=== PATIENT | male | born 1975 | race Caucasian/White ===

== ENCOUNTER 2016-05-06 23:18 | Observation (INO) | payer BC ==
[~2016-05-06] VITALS: Ht 175.3 cm; Wt 93.7 kg
--- NOTE | ~2016-05-06 | CON ---
PATIENT'S NAME: DONTE ALVARADO [facility] AGE: 41 Y [address] ROOM: [address] [address] LOCATION: GPCU ADMIT DATE: 05/06/2016 Consultation DISCHARGE DATE: 05/08/2016 FAMILY PHYSICIAN: Gabe Johns MD ATTENDING PHYSICIAN: Sherri Diaz REFERRING PHYSICIAN: Glenda Corado MD HISTORY OF PRESENT ILLNESS: The patient was admitted under Dr. Diaz. He was distribution dispatcher overnight. The next morning I took over. He has seen Dr. Lopez only once as an outpatient or something along those lines. It appears as if he developed chest pain that lasted almost 7 hours when they were driving and under a lot of stress because of the snow that was blanketing the whole Road. He ended up in [facility] where troponin was found to be elevated and he was transferred here overnight. He continues to have intermittently some sharp jabbing chest pain in the left pericardial area without much radiation or associated features. His EKG and enzymes here also are elevated and so he is being monitored for now. The patient was hospitalized in March around [place] time and had what appeared to be a non ST-segment elevation LA and the patient underwent cardiac catheterization, and no cause was identified as his coronaries were relatively clear. At that time, his EF was normal and he had actually a syncopal episode and Neurology consult was requested, but the patient wanted to go home and syncope was not followed up for very long. Since he has been discharged home, he has been feeling well except he started to have the symptoms yesterday. He has a history of hypertension and ongoing tobaccoism. He denies diabetes. His cholesterol is unknown and there is no family history of premature coronary artery disease. There is no prior history of rheumatic fever or heart murmur, congestive heart failure, dilated or enlarged heart or any diagnosed arrhythmias. MEDICATIONS: Aspirin 81 mg a day. Dyazide 1 capsule a day, atorvastatin 40 mg a day. ALLERGIES: TRAMADOL AND DIPHENHYDRAMINE. PAST MEDICAL HISTORY: 1. Hepatitis C carrier. 2. History of headaches with hypertension. 3. History of TIA 6 years earlier, no cause identified. PATIENT'S NAME: DONTE ALVARADO [facility] AGE: 41 Y [address] ROOM: [address] [place], [place] [address] LOCATION: GPCU ADMIT DATE: 05/06/2016 Consultation DISCHARGE DATE: 05/08/2016 FAMILY PHYSICIAN: Gabe Johns MD ATTENDING PHYSICIAN: Sherri Diaz SOCIAL HISTORY: The patient is . He denies abusing alcohol even though he seemed to have binge drinking off and on. 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 His appetite and weight and sleep were fair. FAMILY HISTORY: No premature coronary artery disease. REVIEW OF SYSTEMS: 1. History of TIA and headaches as mentioned earlier. 2. Sinus problems. 3. Blurring of vision. 4. Some coughing and wheezing. 5. Cholecystectomy. 6. History of kidney stones. PHYSICAL EXAMINATION: VITAL SIGNS: His blood pressure is 129/80, heart rate is 78, respirations is 20, afebrile. Oxygen saturation is in the low 90s. HEENT: Normal. NECK: Supple with JVD, thyromegaly, lymphadenopathy or carotid bruit. HEART: PMI is not well located. First and second heart sounds are regular. There are no added sounds or murmurs. CHEST: Clear to auscultation. ABDOMEN: Soft, nontender. Bowel sounds are normally present. EXTREMITIES: Reveal no edema. CENTRAL NERVOUS SYSTEM: Intact. There is no chest wall tenderness. ASSESSMENT: 1. Atypical chest pains. 2. Elevated troponins with normal EKG and echocardiogram. 3. Recent catheterization was negative for coronary artery disease. RECOMMENDATION: Rule him out and decide whether this is related to myocarditis or some other form of abnormality of the troponins. Again, appreciate this opportunity to participate in the care of Mr. Alvarado. GLENDA CORADO MD PATIENT'S NAME: DONTE ALVARADO [facility] AGE: 41 Y [address] ROOM: [address] [place], [place] [address] LOCATION: GPCU ADMIT DATE: 05/06/2016 Consultation DISCHARGE DATE: 05/08/2016 FAMILY PHYSICIAN: Gabe Johns MD ATTENDING PHYSICIAN: Sherri Diaz/modl /[id number] d: 05/08/162015 t: 05/11/16 1533, CONSULTATION REPORT
--- NOTE | ~2016-05-06 | CON ---
PATIENT'S NAME: DONTE ALVARADO [facility] AGE: 41 Y [address] ROOM: [address] [address] LOCATION: GPCU ADMIT DATE: 05/06/2016 Consultation DISCHARGE DATE: FAMILY PHYSICIAN: Gabe Johns MD ATTENDING PHYSICIAN: Sherri Diaz DATE OF CONSULTATION: 05/07/2016 REFERRING PHYSICIAN: Hyun Mcgregor MD REASON FOR CONSULTATION: Noncardiac chest pain. REFERRING PROVIDER: Dr. Mcgregor. HISTORY OF PRESENT ILLNESS: This is a pleasant 41-year-old male who was recently admitted in March 2016, with non-STEMI. The patient did undergo heart catheterization at that time that was unremarkable. The patient states that yesterday, he began having "chest pain with palpitations," beginning around 11 a.m. He did state, at this time, he was driving and was noted to have increased stress at that time. The patient stated that the intermittent chest pain continued until 6 p.m. He then presented to the emergency room in [facility]. He was found to have an elevated troponin of 0.13. At that time, he was transferred to [facility] for further evaluation. The patient was seen and examined. We were asked to see in consultation as the patient's troponin continued to trend downward with likely not cardiac- related chest pain. The patient denies any apparent heartburn, dysphagia, or change in bowel habits. He does feel that the chest pain does have a precipitating factor including stress. In evaluation of the patient's laboratory work completed at outside facility, he was noted to have elevated liver enzymes as the patient does state that he has a history of untreated hepatitis C. At the time of my evaluation, the patient denied any current chest pain, chest pressure, shortness of breath, palpitations, fever, chills, nausea, vomiting, or abdominal pain. PAST MEDICAL HISTORY: Hepatitis C, untreated; frequent headaches; TIA, greater than 4 years ago; hypertension; heart catheterization in 2016, that was negative; palpitations; hypercholesterolemia. PAST SURGICAL HISTORY: No history of upper endoscopy or colonoscopy. Cholecystectomy, left elbow surgery, back surgery, right arm cellulitis, heart catheterization in March 2016 with no intervention. PATIENT'S NAME: DONTE ALVARADO [facility] AGE: 41 Y [address] ROOM: [address] [place], [place] [address] LOCATION: GPCU ADMIT DATE: 05/06/2016 Consultation DISCHARGE DATE: FAMILY PHYSICIAN: Gabe Johns MD ATTENDING PHYSICIAN: Sherri Diaz SOCIAL HISTORY: The patient is and lives in [place], [place]. He currently uses tobacco with one pack per day for the past 28 years. He denies any frequent alcohol use. He does drink on a social basis, approximately, one time per month. He does admit to recreational drug use including cocaine and amphetamines on a weekly basis, though quit 6 years ago. FAMILY HISTORY: The patient's father has diabetes. The patient's mother has hypertension. ALLERGIES: TRAMADOL CAUSES NAUSEA. BENADRYL CAUSES RESTLESSNESS AND AGITATION. CURRENT MEDICATIONS: Please refer to the medication administration record. REVIEW OF SYSTEMS: A 10-point review of systems was completed. All were negative, except for those identified in the history of present illness. PHYSICAL EXAMINATION: GENERAL: A pleasant 41-year-old male who appears to be in no acute distress. VITAL SIGNS: Temperature 97.8, pulse is 78, respirations of 22, blood pressure 129/81, oxygen saturations 91% on room air. SKIN: [place], warm, dry, and no jaundice. HEENT: Head is normocephalic and atraumatic. Pupils equal, round, and reactive to light and accommodation. Sclerae clear and nonicteric. Oral mucosa is pink and moist. No thyromegaly. NECK: Soft and supple. CARDIOVASCULAR: Regular, normal S1, S2. RESPIRATORY: Respirations even and unlabored. LUNGS: Clear to auscultation. ABDOMEN: Soft, round, nontender, and nondistended. Bowel sounds positive x4 quadrants. MUSCULOSKELETAL: No muscle weakness or atrophy. EXTREMITIES: No clubbing, cyanosis, or edema. NEUROLOGICAL: Grossly nonfocal. LABS AND DIAGNOSTICS: Labs were reviewed from the outside facility including a pro-time of 9.5, INR of 0.94. CBC included a white blood cell count of 10.2, hemoglobin of 17.3, hematocrit of 49.8, and platelet of 252. Sodium 143, potassium of 3.7, chloride of 105, CO2 of 32, glucose 95, BUN of 17, creatinine 0.96, calcium of 11, albumin of 3.9. Alkaline phosphatase of 73, ALT of 79, AST of 39. Total bilirubin is 0.4. CPK of 50, CK-MB is 0.8, troponin T of 0.13. TSH of 2.17. PATIENT'S NAME: DONTE ALVARADO [facility] AGE: 41 Y [address] ROOM: [place] [address] LOCATION: GPCU ADMIT DATE: 05/06/2016 Consultation DISCHARGE DATE: FAMILY PHYSICIAN: Gabe Johns MD ATTENDING PHYSICIAN: Sherri Diaz The patient also underwent a chest x-ray on 05/06/2016 that was within normal limits. An evaluation at [facility] laboratory has been obtained showing a CPK of 54, troponin T decreased to 0.058, CK-MB of 0.8. ASSESSMENT AND PLAN: Again, this is a pleasant 41-year-old male who was transferred to [facility] with acute chest pain. The patient was found to have a slightly elevated troponin of 0.13. He previously had undergone a heart catheterization in March 2016, that was essentially negative. We were asked to see him in consultation per Cardiology for further evaluation of the patient's chest pain, likely noncardiac. At this time, it is recommended for the patient to undergo upper endoscopy for further evaluation. He does have a history of NSAID use, peptic ulcer disease as well as other etiology for the chest pain should be ruled out. The patient also has a history of hepatitis C untreated, likely secondary to history of IV drug use. The patient's liver enzymes are slightly elevated with an ALT of 79, AST of 39, total bilirubin 0.4, and alkaline phosphatase of 83. I discussed with the patient that we can follow up as an outpatient for a possible treatment of the patient's hepatitis C including continued lab workup. Further recommendations to be given status post upper endoscopy. Thank you for this consult and allowing us to participate in the care of this patient. We will continue to monitor, evaluate, and treat as appropriate. JENNIFER NAVARRETE APRN FOR MD SARAH TOSCANO/modl /[id number] d: 05/07/16 1503 t: 05/13/16 1732, CONSULTATION REPORT
--- NOTE | ~2016-05-06 | ECHO ---
Transthoracic Echocardiography Report (TTE) Demographics Patient Name DONTE ALVARADO Date of Study 05/07/2016 Patient Number [id number] Visit Number [id number] Date of 1975 Room Number G[address] Gender Male Number Age 41 year(s) Referring Joe Fox Rn Wound Jarvis Acuna RVT Physician Katie GALVAN Physician Interpreting [facility] Pourer Physician Dominique Wilson MD Supervising Ordering Joe GALVAN/MLP Physician Dominique Wilson MD Nurse Stress Case Management Rn Conclusions Summary The estimated left ventricular ejection fraction is 60%. Mild concentric left ventricular hypertrophy. Diastolic assessment reveals Grade I diastolic dysfunction. Normal left atrial size. Visualized portions of the aortic root and ascending aorta appear normal in size. Procedure Type of Study TTE procedure:2D Echocardiogram. Procedure Date Date: 05/07/2016 Start: 07:53 AM Study Location: Inpatient Portable Technical Quality: Adequate visualization Indications:Acute myocardial, unspecified. Patient Status: Routine HR: 67 bpm BP: 129/81 mmHg Allergies - Other:(tramadol). M-Mode/2D Measurements LV Diastolic Dimension: 4.55 cm LV Systolic Dimension: 3.3 cm LV Septum Diastolic: 1.25 cm LV PW Diastolic: 1.02 cm AO Root Dimension: 2.8 cm Cardiac Output: 2.24 l/min AV Cusp Separation: 1.5 cm RV Diastolic Dimension: 3.12 cm LA volume: 24 ml LVOT: 1.6 cm LVOT VTI: 16.6 cm LV Stroke volume: 33.36 ml Doppler Measurements AV Peak Velocity: 1.36 m/s MV Peak E-Wave: 0.55 m/s AV Peak Gradient: 7.4 mmHg MV Peak A-Wave: 0.7 m/s AV Mean Gradient: 5 mmHg MV E/A Ratio: 0.79 LVOT Peak Velocity: 1.14 m/s MV P1/2t: 79 msec TR Gradient:5.2 mmHg PV Peak Velocity: 1 m/s PV Peak Gradient: 4 mmHg E' Septal Velocity: 0.06 m/s A' Septal Velocity: 0.09 m/s E' Lateral Velocity: 0.09 m/s A' Lateral Velocity: 0.11 m/s Findings Left Ventricle Mild concentric left ventricular hypertrophy. Diastolic assessment reveals Grade I diastolic dysfunction. Right Ventricle Normal right ventricle structure and function. Left Atrium Normal left atrial size. Right Atrium Normal right atrial size. Mitral Valve Trivial mitral regurgitation by color Doppler. Aortic Valve Normal aortic valve structure and function. Tricuspid Valve Trivial tricuspid regurgitation by color Doppler. Pulmonic Valve Trivial pulmonic valve regurgitation by color Doppler. Pericardial Effusion Epicardial fat pad noted. Miscellaneous Visualized portions of the aortic root and ascending aorta appear normal in size. Pleural Effusion No evidence of pleural effusion. Signature dtt: Sherri Diaz dtd: 05/07/16 0753 Physician Self Edit
[~2016-05-06 23:18] MED LIST: ASPIRIN LO-DOSE81 MG PO; DYAZIDE PO; LIPITOR40 MG PO; NICOTINE PATCH1 EAC1 TOP
[2016-05-07 13:55] LABS: BARBITURATE NEGATIVE (NEGATIVE); COCAINE NEGATIVE (NEGATIVE); OPIATES POSITIVE (NEGATIVE)
[2016-05-07 13:57] LABS: AMPHETAMINE NEGATIVE (NEGATIVE)
== END 2016-05-08 15:48 | disposition critical access hospital (66) ==
LOC: GPCU 23:18
PROVIDERS: Internal Medicine Interventional Cardiology; ADMIT Internal Medicine Cardiovascular Disease
PROC: 0DB58ZX Excision of Esophagus, Via Natural or Artificial Opening Endoscopic, Diagnostic (ICD-10-PCS; principal; 2016-05-07)
PROC: 0DB68ZX Excision of Stomach, Via Natural or Artificial Opening Endoscopic, Diagnostic (ICD-10-PCS; 2016-05-07)
DX: K25.9 Gastric ulcer, unspecified as acute or chronic, without hemorrhage or perforation (principal); K29.80 Duodenitis without bleeding; R51 Headache; I10 Essential (primary) hypertension; E78.00 Pure hypercholesterolemia, unspecified; B19.20 Unspecified viral hepatitis C without hepatic coma; Z98.890 Other specified postprocedural states; Z90.49 Acquired absence of other specified parts of digestive tract; F17.210 Nicotine dependence, cigarettes, uncomplicated; Z88.8 Allergy status to other drugs, medicaments and biological substances; Z79.82 Long term (current) use of aspirin; Z79.899 Other long term (current) drug therapy; Z86.73 Personal history of transient ischemic attack (TIA), and cerebral infarction without residual deficits
CPT/HCPCS: G0378; J2270; J7030; J7050